=== PATIENT | male | born 1985 | race Caucasian/White ===

== ENCOUNTER 2018-10-14 12:25 | Emergency (ER) | payer OTHER ==
[2018-10-14 12:31] VITALS: BMI 29.8
--- NOTE | 2018-10-14 12:31 | PDOC ---
Rapid Medical Evaluation Time Seen by Provider: 10/14/18 12:27 Medical Evaluation: 10/14/18 12:27 I have performed a brief in-person evaluation of this patient. The patient presents with a chief complaint of: abd pain "all over" x 2 months - burning pain, seen at [facility] given pepcid w/o relief. +N/V/D , 1 episode of vomiting daily, 3-4 episodes of diarrhea daily, pt reports hx of IBS diagnosed in intermediate, "haven't had symptoms since 2004" Pertinent physical exam findings: well appearing , epigastric tenderness I have ordered the following: labs, urine, ct The patient will proceed to the ED for further evaluation.
[2018-10-14 13:37] LABS: BASO % 0.8 % (0-2.0); EOS % 1.9 % (0-4.5); HEMATOCRIT 46.3 % (35.4-49); HEMOGLOBIN 15.8 GM/dL (11.7-16.9); LYMPH % 30.2 % (8-40); MCH 30.3 pg (25.7-33.7); MCHC 34.1 g/dl (32.0-35.9); MEAN PLT VOLUME 9.7 fl (7.5-11.1); MONO % 9.7 % (3.8-10.2); NEUT % 57.4 % (42.8-82.8); PLATELET COUNT 235 K/MM3 (134-434); RDW 13.7 % (11.9-15.9); WHITE BLOOD COUNT 8.3 K/mm3 (4.0-10.0)
[2018-10-14 14:06] LABS: ALBUMIN 4.6 g/dl (3.4-5.0); BILIRUBIN,TOTAL 0.6 mg/dL (0.2-1); CALCIUM 9.7 mg/dL (8.5-10.1); CREATININE 1.1 mg/dL (0.55-1.3); POTASSIUM 4.4 mmol/L (3.5-5.1); TOT PROT 8.5 g/dl (6.4-8.2)
--- NOTE | 2018-10-14 14:22 | PDOC ---
History of Present Illness - General Chief Complaint: Pain Stated Complaint: ABD PAIN Time Seen by Provider: 10/14/18 12:27 History Source: Patient Exam Limitations: No Limitations - History of Present Illness Initial Comments: 10/14/18 14:25 33 year old man with a history of IBS (dx 2003) who presents with 2 months of intermittent epigastric burning nonradiating pain rated 7/10 worse with lying back, nausea, vomiting, cramping abdominal pain and intermittent nonbloody watery diarrhea. The patient has arreaga some decrease in appetite and has lost 5-6 lbs over 2 months. He was seen at [facility] ER 3 weeks ago and got an ultrasounds that showed gas and was given pepcid that relieved his symptoms but has since not been helping. Had 4x nonbloody diarrhea 2 days ago and 1x nbnb emesis this morning. The patient also noted leg soreness, and generalized muscle aches. Denies abdominal surgeries Denies alcohol use, history of gallstones Denies dysuria, hematuria Denies antibiotic use prior to symptoms Denies fever Denies chest pain 10/14/18 14:31 Past History - Past Medical History Allergies/Adverse Reactions: Allergies Allergy/AdvReac Type Severity Reaction Status Date / Time shellfish derived Allergy Verified 10/14/18 13:47 Home Medications: Ambulatory Orders Simethicone [Gas-X] 125 mg PO PRN PRN 10/14/18 Sucralfate [Carafate -] 1 gm PO BID #10 tablet 10/14/18 - Suicide/Smoking/Psychosocial Hx Smoking History: Never smoked Information on smoking cessation initiated: No Hx Alcohol Use: No Drug/Substance Use Hx: No Review of Systems - Review of Systems Able to Perform ROS?: Yes Comments:: 10/14/18 17:49 GENERAL/CONSTITUTIONAL: No fever or chills. No weakness. HEAD, EYES, EARS, NOSE AND THROAT: No change in vision. No ear pain or discharge. No sore throat. CARDIOVASCULAR: No chest pain or shortness of breath RESPIRATORY: No cough, wheezing, or hemoptysis. GASTROINTESTINAL: + nausea, vomiting, diarrhea GENITOURINARY: No dysuria, frequency, or change in urination. MUSCULOSKELETAL: No joint or muscle swelling or pain. No neck or back pain. SKIN: No rash NEUROLOGIC: No headache, vertigo, loss of consciousness, or change in strength/ sensation. ENDOCRINE: No increased thirst. No abnormal weight change HEMATOLOGIC/LYMPHATIC: No anemia, easy bleeding, or history of blood clots. ALLERGIC/IMMUNOLOGIC: No hives or skin allergy. Is the patient limited Pashto proficient: No *Physical Exam - Vital Signs Last Vital Signs Temp Pulse Resp BP Pulse Ox 97.8 F 104 H 16 113/98 97 10/14/18 12:28 10/14/18 12:28 10/14/18 12:28 10/14/18 12:28 10/14/18 12:28 - Physical Exam Comments: 10/14/18 14:31 GENERAL: Awake, alert, and fully oriented, in no acute distress HEAD: No signs of trauma, normocephalic, atraumatic EYES: EOMI, sclera anicteric, conjunctiva clear ENT: oropharynx clear without exudates. Moist mucosa NECK: Normal ROM, supple LUNGS: No distress, speaks full sentences, clear to auscultation bilaterally HEART: Regular rate and rhythm, normal S1 and S2, no murmurs, rubs or gallops, peripheral pulses normal and equal bilaterally. ABDOMEN: Soft, + slight epigastric tenderness, normoactive bowel sounds. No guarding, no rebound. No masses EXTREMITIES : Normal inspection, Normal range of motion, no edema. No clubbing or cyanosis. NEUROLOGICAL: Cranial nerves II through XII grossly intact. Normal speech, normal gait, no focal sensorimotor deficits SKIN: Warm, Dry, normal turgor, no rashes or lesions noted ED Treatment Course - LABORATORY CBC & Chemistry Diagram: 10/14/18 13:25 10/14/18 12:30 - ADDITIONAL ORDERS Additional order review: Laboratory Results 10/14/18 12:30 Sodium 134 L Potassium 4.4 Chloride 102 Carbon Dioxide 24 Anion Gap 7 L BUN 26 H Creatinine 1.1 Est GFR (CKD-EPI)AfAm 100.97 Est GFR (CKD-EPI)NonAf 87.12 Random Glucose 94 Calcium 9.7 Total Bilirubin 0.6 AST 55 H ALT 52 Alkaline Phosphatase 92 Total Protein 8.5 H Albumin 4.6 Lipase 212 10/14/18 13:25 RBC 5.20 MCV 89.0 MCHC 34.1 RDW 13.7 MPV 9.7 Neutrophils % 57.4 Lymphocytes % 30.2 Monocytes % 9.7 Eosinophils % 1.9 Basophils % 0.8 Medical Decision Making - Medical Decision Making 10/14/18 14:29 33 year old man with a history of IBS (dx 2003) who presents with 2 months of intermittent epigastric burning nonradiating pain rated 7/10 worse with lying back, nausea, vomiting, cramping abdominal pain and intermittent nonbloody watery diarrhea. The patient has areraga some decrease in appetite and has lost 5-6 lbs over 2 months. He was seen at [facility] ER 3 weeks ago and got an ultrasounds that showed gas and was given pepcid that relieved his symptoms but has since not been helping. Had 4x nonbloody diarrhea 2 days ago and 1x nbnb emesis this morning. The patient also noted leg soreness, and generalized muscle aches. ED Course: consider pancreatitis vs GERD vs IBS vs colitis less liekly cholelithasis vs cholecystitis however with RuQ pain or tendere consider PUD vs IBD unliekly to be ACS cbc, cmp, lipase, ua abd CT pepcid, maalox, ivf 10/14/18 14:32 labs within normal pending CT AP EKG with normal sinus at 73 bpm, no ST segment elevations, T wae inversions in II, III, aVF however patient very unliekly to have ACS considering time course of pain, w/o chest pain 10/14/18 16:39 CTAP unremarkable patient feels some improvement of symptoms with pepcid maalox 10/14/18 17:50 Will dose carafat and d/c with GI follow and home carafat strict return precautions given. *DC/Admit/Observation/Transfer Diagnosis at time of Disposition: Nausea & vomiting, Diarrhea, Epigastric pain - Discharge Dispostion Disposition: HOME Condition at time of disposition: Stable Decision to Admit order: No - Prescriptions Prescriptions: Sucralfate [Carafate -] 1 gm PO BID #10 tablet - Referrals Referrals: Onur Hallman DO [Staff Physician] - - Patient Instructions Printed Discharge Instructions: DI for Gastritis, DI for Epigastric Pain Additional Instructions: You were seen in the ED for complaints of nausea, vomiting, diarrhea and upper abdominal pain. Labwork and imaging was done and was unremarkable. There does not appear to be need for immediate hospitalization. Please follow up with your Primary Care Physician within 1 week. You were given a referral for GI and are advised to follow up within 1 week. A prescription for Carafate was sent to your pharmacy and you should take medication as indicated. Return to the ED if you have worsening abdominal pain, chest pain, blood in your vomit or stool or fevers. - Post Discharge Activity
[2018-10-14] MEDS ORDERED: FAMOTIDINE 20 MG/50 ML IVPB 20 MG/50 ML MG IVPB ONE ×2 (14:23→14:40)
[2018-10-14] MEDS ORDERED: MAG HYDROX/AL HYDROX/SIMETH 30 ML UNIT-DOSE CUP PO ONE (14:23)
[2018-10-14] MEDS ORDERED: SODIUM CHLORIDE 1,000 ML IV SCH (14:30)
[2018-10-14 14:35] LABS: URINE APPEARANCE CLEAR; URINE BILIRUBIN NEGATIVE (NEGATIVE); URINE COLOR YELLOW; URINE GLUCOSE (UA) NEGATIVE (NEGATIVE); URINE KETONE TRACE (NEGATIVE); URINE LEUK ESTERASE NEGATIVE (NEGATIVE); URINE NITRITE NEGATIVE (NEGATIVE); URINE PROTEIN TRACE (NEGATIVE); URINE UROBILINOGEN 0.2 mg/dL (0.2-1.0)
[2018-10-14] MEDS ORDERED: MAG HYDROX/AL HYDROX/SIMETH 30 ML UNIT-DOSE CUP ONE (14:40)
--- NOTE | 2018-10-14 15:23 | EKG ---
Test Reason : Blood Pressure : / mmHG Vent. Rate : 073 BPM Atrial Rate : 073 BPM P-R Int : 132 ms QRS Dur : 090 ms QT Int : 388 ms P-R-T Axes : 038 051 -19 degrees QTc Int : 427 ms NORMAL SINUS RHYTHM T WAVE ABNORMALITY, CONSIDER INFERIOR ISCHEMIA ABNORMAL ECG NO PREVIOUS ECGS AVAILABLE Confirmed by CATHERINE ALFORD MD ([id number]) on 10/14/2018 3:22:55 PM Referred By: Confirmed By:CATHERINE ALFORD MD
[2018-10-14] MEDS ORDERED: SUCRALFATE 1 GM/10 ML UNIT DOSE CUPS PO ONE (16:49)
--- NOTE | 2018-10-14 16:49 | PDOC ---
Documentation entered by Michelle Gibson SCRIBE, acting as scribe for Dwain Daigle MD. Dwain Daigle MD: This documentation has been prepared by the Paige becerra Adrianna, SCRIBE, under my direction and personally reviewed by me in its entirety. I confirm that the documentation accurately reflects all work, treatment, procedures, and medical decision making performed by me. Attending Attestation - Resident Resident Name: ShaunshaylablakeKaranValentine - HPI HPI: 33 Y M, with a significant PMH of IBS, who presents with abdominal pain for 2 months. Pain is epigastric, burning in nature with cramps, and is exacerbated with lying down. He reports associated decreased PO and 6 pd weight loss in the past month. Patient was seen at [facility] for this issue 3 weeks ago, where pepcid initially provided relief but no longer does. He endorses bilateral LE thigh muscle aches at this time. Allergies: Shellfish Past surgical history: None reported Social history: No reported 10/14/18 15:39 - Physicial Exam PE: 10/14/18 16:46 Patient is awake and alert, well-nourished, in no distress Normocephalic, atraumatic PERRLA, EOMI no scleral icterus CTA RRR Soft, nondistended, mild epigastric discomfort on deep palpation, no guarding rebound, Pereira's negative, negative tenderness at McBurney's, no abnormalities - Medical Decision Making 10/14/18 16:48 Patient is a 33-year-old male with history of IBS who presents with epigastric discomfort and recurrent nausea, nonbloody, nonbilious vomiting and loose watery stools. Differential diagnoses includes pancreatitis versus gastritis versus gastroenteritis versus IBS, with versus IBD, versus colitis. Will hydrate, we'll administer H2 blockers and Carafate, will obtain CT of abdomen and pelvis. Will reassess. Likely discharge with GI follow-up.
[2018-10-14] MEDS ORDERED: SUCRALFATE 1 GM TABLET (FP) ONE (16:57)
[2018-10-14 17:30] VITALS: BP 120/80; PULSE 86; TEMP 97.9
== END 2018-10-14 17:31 | disposition home or self-care (01) ==
LOC: JER 12:25
PROC: 3E033GC Introduction of Other Therapeutic Substance into Peripheral Vein, Percutaneous Approach (ICD-10-PCS; principal; 2018-10-14)
DX: R10.13 Epigastric pain (principal); R19.7 Diarrhea, unspecified; R11.2 Nausea with vomiting, unspecified; K58.9 Irritable bowel syndrome, unspecified
CPT/HCPCS: 36415; 74177-TC; 80053; 81003; 83690; 85025; 87086; 93005; 93010; 96365; 99284-25; J7030

== ENCOUNTER 2019-01-07 07:39 | Day surgery (SDC) | payer OTHER ==
[2019-01-05 14:53] VITALS: BMI 30.9
[2019-01-07 09:44] VITALS: TEMP 97.8
[2019-01-07 13:28] VITALS: BP 100/67; PULSE 56
--- NOTE | 2019-01-08 17:54 | PATH ---
Cytology Non-Gynecological Report [facility]: [id number] /Age/Gender: 1985 (Age: 33) / M Account: [id number] Location: [facility]-ENDOSCOPY Taken: 01/07/2019 Received: 01/07/2019 Reported: 01/08/2019 Physicians: Rolando Hallman D.O. Specimen(s) Received ESOPHAGEAL BRUSHING Clinical History Esophageal brushing r/o sandra Final Diagnosis ESOPHAGEAL BRUSHING FOR CYTOLOGY: SATISFACTORY FOR EVALUATION. SQUAMOUS CELLS WITH REACTIVE CELLULAR CHANGES. SANDRA SPECIES. SCATTERED SQUAMOUS CELLS WITH REACTIVE CELLULAR CHANGES NOTED. NEUTROPHILS PRESENT. RARE FUNGAL FORMS MORPHOLOGICALLY CONSISTENT WITH SANDRA SPECIES PRESENT. Electronically Signed Kate Kim M.D. Gross Description Received 1 brush and direct smear in approximately 50 cc of bloody fluid fixed in 50% alcohol. Direct smear Pap stained. One cellblock prepared.
--- NOTE | 2019-01-08 18:55 | PATH ---
Surgical Pathology Report Patient Name: SOHAN HAYES [facility]. Rec. #: [id number] /Age/Gender: 1985 (Age: 33) / M Account: [id number] Location: [facility]-ENDOS[facility] Taken: 01/07/2019 Received: 01/07/2019 Reported: 01/08/2019 Physicians: Sohan Hallman D.O. Specimen(s) Received A: SECOND PORTION AND BULB OF DUODENUM B: PYLORIC FOLD C: ANTRAL EROSIONS D: STOMACH BODY Clinical History Dyspepsia Postoperative diagnosis: Monica esophagitis, gastritis Final Diagnosis A. DUODENUM, SECOND PORTION AND BULB, BIOPSY: DUODENAL MUCOSA WITHOUT SIGNIFICANT PATHOLOGIC FINDINGS. B. STOMACH, PYLORIC FOLD, BIOPSY: GASTRIC MUCOSA WITH MILD CHRONIC GASTRITIS. IMMUNOHISTOCHEMICAL STAIN FOR H. PYLORI IS NEGATIVE. C. STOMACH, ANTRAL EROSIONS, BIOPSY: GASTRIC ANTRAL MUCOSA WITH MILD CHRONIC GASTRITIS AND INTESTINAL METAPLASIA. NO DYSPLASIA IDENTIFIED. IMMUNOHISTOCHEMICAL STAIN FOR H. PYLORI IS NEGATIVE. D. STOMACH, BODY, BIOPSY: GASTRIC BODY MUCOSA WITH MILD CHRONIC GASTRITIS. IMMUNOHISTOCHEMICAL STAIN FOR H. PYLORI IS NEGATIVE. Comment: See concurrent cytology ([id number]). Electronically Signed Kate Kim M.D. Gross Description A. Received in formalin, labeled "second portion and bulb of duodenum" are 2 rojas, irregular portions of soft tissue averaging 0.4 cm. in greatest dimension. The specimens are submitted in toto in one cassette. B. Received in formalin, labeled "pyloric fold biopsy" are 2 rojas, irregular portions of soft tissue averaging 0.2 cm. in greatest dimension. The specimens are submitted in toto in one cassette. C. Received in formalin, labeled "antral erosions biopsy" are 2 rojas, irregular portions of soft tissue measuring 0.4 and 0.5 cm. in greatest dimension. The specimens are submitted in toto in one cassette. D. Received in formalin, labeled "body of stomach" are 2 rojas, irregular portions of soft tissue averaging 0.3 cm. in greatest dimension. The specimens are submitted in toto in one cassette. /01/07/2019 saudi01/07/2019
== END 2019-01-07 11:30 | disposition home or self-care (01) ==
LOC: JASU-ENDO 07:39
PROVIDERS: ATTEND Internal Medicine Gastroenterology
PROC: 0DB68ZX Excision of Stomach, Via Natural or Artificial Opening Endoscopic, Diagnostic (ICD-10-PCS; 2019-01-07)
PROC: 0DB18ZX Excision of Upper Esophagus, Via Natural or Artificial Opening Endoscopic, Diagnostic (ICD-10-PCS; 2019-01-07)
PROC: 0DB28ZX Excision of Middle Esophagus, Via Natural or Artificial Opening Endoscopic, Diagnostic (ICD-10-PCS; 2019-01-07)
PROC: 0DB98ZX Excision of Duodenum, Via Natural or Artificial Opening Endoscopic, Diagnostic (ICD-10-PCS; principal; 2019-01-07 08:30)
DX: K25.9 Gastric ulcer, unspecified as acute or chronic, without hemorrhage or perforation (principal); B37.89 Other sites of candidiasis
CPT/HCPCS: 88104; 88305-TC; 88342-TC